=== PATIENT | female | born 1990 | race American Indian/Alaskan Native ===

== ENCOUNTER 2020-01-07 02:20 | Emergency (ER) | payer MEDICAID ==
[2020-01-07 02:27] VITALS: BP 111/59
[2020-01-07] MEDS ORDERED: FLUORESCEIN 1 MG STRIP OP ONE (04:25)
[2020-01-07] MEDS ORDERED: IBUPROFEN 800 MG TAB PO ONE (04:44)
--- NOTE | 2020-01-07 04:49 | Emergency Department Report ---
[facility] Chief Complaint: Eye Problems Stated Complaint: EYE PROBLEM Time Seen by Provider: 01/07/20 04:43 Side: Right Severity: moderate Symptoms: Yes Eye Itching, Yes Eye Redness, Yes Eye Pain, Yes Mucous Drainage, Yes Purulent Drainage, Yes H/O Allergic Rhinitis, Yes Contact Lens Use, No Blurred Vision, No Preceding URI, No Trauma, No Fever, No Headache Other History: pt is a 29 y/o aaf who presents for right eye pain and irritation x 1 days, states pain after removing contact lense, saw ophthalmology, awaiting new glasess, now with clear drainage from right eye, and redness, no visual c hanges , no fall , injury , or trauma, symptoms exacerbated by light, and movement, symptoms relieved by closing eye. ED Review of Systems ROS: Stated complaint: EYE PROBLEM Other details as noted in HPI Constitutional: denies: chills, fever Eyes: eye pain, eye discharge ENT: denies: ear pain, throat pain Respiratory: no symptoms reported Cardiovascular: denies: chest pain, palpitations Endocrine: no symptoms reported Gastrointestinal: denies: abdominal pain, nausea, diarrhea Genitourinary: denies: urgency, dysuria, discharge Musculoskeletal: denies: back pain, joint swelling, arthralgia Skin: denies: rash, lesions Neurological: denies: headache, weakness, paresthesias Psychiatric: denies: anxiety, depression Hematological/Lymphatic: denies: easy bleeding, easy bruising ED Past Medical Hx - Past Medical History Previous Medical History?: Yes Hx Seizures: Yes Hx Psychiatric Treatment: Yes (DEPRESSION) Additional medical history: Gonococcal vaginitis - Surgical History Past Surgical History?: Yes Additional Surgical History: 4X - Social History Smoking Status: Never Smoker Substance Use Type: Alcohol, Marijuana - Medications Home Medications: Home Medications Medication Instructions Recorded Confirmed Last Taken Type Acetaminophen/Codeine [Tylenol #3] 1 tab PO Q6H PRN #12 tab 02/26/15 Unknown Rx metroNIDAZOLE [Flagyl TAB] 500 mg PO Q12H #14 tablet 02/26/15 Unknown Rx Ibuprofen [Motrin 800 MG tab] 800 mg PO Q8HR PRN #30 tablet 01/07/20 Unknown Rx Ketotifen Fumarate [Zaditor] 1 drop OD BID #5 ml 01/07/20 Unknown Rx Polymyxin B Sulf/Trimethoprim 2 drop OD BID 7 Days #10 ml 01/07/20 Unknown Rx [Polytrim Eye Drops] [facility] Exam - Exam General: Vital signs noted. No distress. Alert and acting appropriately. Eye Exam: Right Injection, Right EOMI, Right Mucous Discharge, Right Purulent Discharge, Right Fluorescein Uptake, Right Photophobia, Neither Chemosis, Neither Abnormal Pupil, Neither Eye Foreign Body, Neither Lid Foreign Body, Neither Corneal Edema HEENT: No Nasal Congestion, No Pharyngeal Erythema Remainder of HEENT: Normal Lungs: Yes Clear Lung Sounds, Yes Good Air Exchange, No Wheezes, No Stridor, No Cough, No Nasal Flaring, No Retractions, No Use of Accessory Muscles Exam: Eye exam small corneal abrasion at 9:00, moderate conjunctival erythema, lid inverted and swept no foreign body noted, symptoms relieved with irrigation with sterile saline visual acuity is 20/30 bilateral ED Course Vital Signs 01/07/20 01/07/20 02:24 02:26 Temperature 98.2 F Pulse Rate 73 Respiratory 20 Rate Blood Pressure 111/59 [Right] O2 Sat by Pulse 98 Oximetry ED Medical Decision Making - Medical Decision Making This is a small corneal abrasion with conjunctivitis plan Polytrim eyedrops, Zaditor eyedrops, ibuprofen as needed pain. Patient will follow-up with ophthalmology today or tomorrow as scheduled. Patient will return to ED should symptoms worsen patient verbalized agreement and understanding with discharge plan will be DC'd home in stable condition at this time. Critical care attestation.: If time is entered above; I have spent that time in minutes in the direct care of this critically ill patient, excluding procedure time. ED Disposition Clinical Impression: Conjunctivitis Qualifiers: Conjunctivitis type: acute Acute conjunctivitis type: bacterial Laterality: right Qualified Code(s): H10.31 - Unspecified acute conjunctivitis, right eye Corneal abrasion, right Qualifiers: Encounter type: initial encounter Qualified Code(s): S05.01XA - Injury of conjunctiva and corneal abrasion without foreign body, right eye, initial encounter Disposition: DC-01 TO HOME OR SELFCARE Is pt being admited?: No Does the pt Need Aspirin: No Condition: Stable Instructions: Conjunctivitis (ED), Corneal Abrasion (ED) Prescriptions: Ibuprofen [Motrin 800 MG tab] 800 mg PO Q8HR PRN #30 tablet PRN Reason: pain Polymyxin B Sulf/Trimethoprim [Polytrim Eye Drops] 2 drop OD BID 7 Days #10 ml Ketotifen Fumarate [Zaditor] 1 drop OD BID #5 ml Referrals: CORTEZ BERG MD [Staff Physician] - 3-5 Days Forms: Work/School Release Form(ED) Time of Disposition: 05:02
== END 2020-01-07 05:11 | disposition home or self-care (01) ==
LOC: ED 02:20
DX: S05.01XA Injury of conjunctiva and corneal abrasion without foreign body, right eye, initial encounter (principal); R56.9 Unspecified convulsions; F32.9 Major depressive disorder, single episode, unspecified; F12.10 Cannabis abuse, uncomplicated; Z98.890 Other specified postprocedural states; Z79.1 Long term (current) use of non-steroidal anti-inflammatories (NSAID); Z79.899 Other long term (current) drug therapy; H10.9 Unspecified conjunctivitis; X58.XXXA Exposure to other specified factors, initial encounter; Y93.89 Activity, other specified; Y92.89 Other specified places as the place of occurrence of the external cause; Y99.8 Other external cause status
CPT/HCPCS: 99282

== ENCOUNTER 2020-01-26 13:45 | Emergency (ER) | payer MEDICAID ==
--- NOTE | 2020-01-26 14:28 | Emergency Department Report ---
Blank Doc - Documentation Documentation: 29-year-old female that presents with left thigh laceration. This initial assessment/diagnostic orders/clinical plan/treatment(s) is/are subject to change based on patient's health status, clinical progression and re- assessment by fellow clinical providers in the ED. Further treatment and workup at subsequent clinical providers discretion. Patient/guardians urged not to elope from the ED as their condition may be serious if not clinically assessed and managed. Initial orders include: 1- Patient sent to [facility] for further evaluation and treatment 2- lac repair needs to be done
[2020-01-26 14:31] VITALS: BP 124/57
[2020-01-26] MEDS ORDERED: IBUPROFEN 600 MG TAB PO ONE (19:35)
[2020-01-26] MEDS ORDERED: LIDOCAINE (1%) 10 MG/1 ML VIAL 20 ML MDV INFILTRATI ONE (19:35)
[2020-01-26] MEDS ORDERED: DIPHtheria,PERTUSSIS(ACELL),TETANUS VACCINE/PF 0.5 ML VIAL IM ONE (20:47)
--- NOTE | 2020-01-26 20:52 | Emergency Department Report ---
- General Chief Complaint: Wound/Laceration Stated Complaint: LEFT LEG LAC Time Seen by Provider: 01/26/20 14:27 Source: patient Mode of arrival: Ambulatory Limitations: No Limitations - History of Present Illness Initial Comments: Patient is a 29-year-old female presents emergency room with complaints of a laceration to the left thigh that occurred just prior to arrival. She states that her son had set a plate on the stairs and she did not see it. She states she accidentally slipped and fell and landed on the plate and it cut her left thigh. She states that she also has some left elbow discomfort. She is ambulatory without difficulty. She denies any numbness or weakness. She is unsure of her last tetanus immunization. There is no bleeding currently. She denies any past medical history or allergies to medications. - Related Data Previous Rx's Medication Instructions Recorded Last Taken Type Acetaminophen/Codeine [Tylenol #3] 1 tab PO Q6H PRN #12 tab 02/26/15 Unknown Rx metroNIDAZOLE [Flagyl TAB] 500 mg PO Q12H #14 tablet 02/26/15 Unknown Rx Ibuprofen [Motrin 800 MG tab] 800 mg PO Q8HR PRN #30 tablet 01/07/20 Unknown Rx Ketotifen Fumarate [Zaditor] 1 drop OD BID #5 ml 01/07/20 Unknown Rx Polymyxin B Sulf/Trimethoprim 2 drop OD BID 7 Days #10 ml 01/07/20 Unknown Rx [Polytrim Eye Drops] Ibuprofen [Motrin 600 MG tab] 600 mg PO Q8H PRN #12 tablet 01/26/20 Unknown Rx cephALEXin [Keflex] 500 mg PO QID 7 Days #56 cap 01/26/20 Unknown Rx Allergies Allergy/AdvReac Type Severity Reaction Status Date / Time No Known Allergies Allergy Verified 02/25/15 22:23 ED Review of Systems ROS: Stated complaint: LEFT LEG LAC Other details as noted in HPI Comment: All other systems reviewed and negative ED Past Medical Hx - Past Medical History Previous Medical History?: Yes Hx Seizures: Yes Hx Psychiatric Treatment: Yes (DEPRESSION) Additional medical history: Gonococcal vaginitis - Surgical History Past Surgical History?: Yes Additional Surgical History: 4X. C section - Social History Smoking Status: Never Smoker Substance Use Type: None - Medications Home Medications: Home Medications Medication Instructions Recorded Confirmed Last Taken Type Acetaminophen/Codeine [Tylenol #3] 1 tab PO Q6H PRN #12 tab 02/26/15 Unknown Rx metroNIDAZOLE [Flagyl TAB] 500 mg PO Q12H #14 tablet 02/26/15 Unknown Rx Ibuprofen [Motrin 800 MG tab] 800 mg PO Q8HR PRN #30 tablet 01/07/20 Unknown Rx Ketotifen Fumarate [Zaditor] 1 drop OD BID #5 ml 01/07/20 Unknown Rx Polymyxin B Sulf/Trimethoprim 2 drop OD BID 7 Days #10 ml 01/07/20 Unknown Rx [Polytrim Eye Drops] Ibuprofen [Motrin 600 MG tab] 600 mg PO Q8H PRN #12 tablet 01/26/20 Unknown Rx cephALEXin [Keflex] 500 mg PO QID 7 Days #56 cap 01/26/20 Unknown Rx ED Physical Exam - General Limitations: No Limitations General appearance: alert, in no apparent distress - Head Head exam: Present: atraumatic, normocephalic - Eye Eye exam: Present: normal appearance - ENT ENT exam: Present: mucous membranes moist - Extremities Exam Extremities exam: Present: other (4 cm laceration to the left lateral thigh, superificial, no foreign body visualized, no muscle/tendon involvement, FROM of the LLE, no deformity, no bony ttp of the left elbow, no edema, no deformity, FROM of the left elbow without difficulty, neurovascularly intact throughout) - Neurological Exam Neurological exam: Present: alert, oriented X3 - Psychiatric Psychiatric exam: Present: normal affect, normal mood - Skin Skin exam: Present: warm, dry ED Course Vital Signs 01/26/20 14:28 Temperature 98.6 F Pulse Rate 83 Respiratory 16 Rate Blood Pressure 124/57 O2 Sat by Pulse 98 Oximetry - Laceration /Wound Repair Left Lateral Thigh Wound Location: lower extremity (left lateral thigh) Wound Length (cm): 4 Wound's Depth, Shape: superficial Wound Explored: clean Irrigated w/ Saline (ccs): 500 Betadine Prep?: Yes Anesthesia: 1% Lidocaine Volume Anesthetic (ccs): 7 Wound Debrided: moderate Wound Repaired With: sutures Suture Size/Type: 3:0 Number of Sutures: 7 Layer Closure?: No Sterile Dressing Applied?: Yes Progress: Wound irrigated with saline and thoroughly scrubbed with Betadine, no foreign bodies identified, no muscle or tendon involvement, 7 cc of 1% lidocaine without epinephrine used as anesthetic, 3-0 Prolene used for skin closure, 7 sutures placed, patient tolerated well, no complications, bleeding controlled, sterile dressing applied, patient remained neurovascularly intact ED Medical Decision Making - Medical Decision Making Patient is a 29-year-old female presents emergency room with complaints of a laceration to the left thigh that occurred just prior to arrival. She states that her son had set a plate on the stairs and she did not see it. She states she accidentally slipped and fell and landed on the plate and it cut her left thigh. She states that she also has some left elbow discomfort. She is ambulatory without difficulty. She denies any numbness or weakness. She is unsure of her last tetanus immunization. There is no bleeding currently. She denies any past medical history or allergies to medications. VSS. on exam: 4 cm laceration to the left lateral thigh, superficial, no foreign body visualized, no muscle/tendon involvement, FROM of the LLE, no deformity, no bony ttp of the left elbow, no edema, no deformity, FROM of the left elbow without difficulty, neurovascularly intact throughout. Laceration irrigated with saline and thoroughly scrubbed with Betadine and repaired per procedure note. Patient given ibuprofen and tetanus immunization. No clinical signs of acute fracture o r dislocation of the elbow. Patient given prescription for ibuprofen and Keflex. Advised patient Please take medication as prescribed. Please keep area clean, dry, covered. May wash with soap and water and immediately dry. No hot tub, no pool, no soaking in water. Sutures need to be removed in 10 to 14 days. May have this done at primary care, urgent care, or return to the emergency room. Follow-up with your primary care doctor. Return to the emergency room for any new or worsening symptoms or any signs of infection. Critical care attestation.: If time is entered above; I have spent that time in minutes in the direct care of this critically ill patient, excluding procedure time. ED Disposition Clinical Impression: Left elbow pain Laceration of left thigh Qualifiers: Encounter type: initial encounter Qualified Code(s): S71.112A - Laceration without foreign body, left thigh, initial encounter Disposition: TO HOME OR SELFCARE Is pt being admited?: No Does the pt Need Aspirin: No Condition: Stable Instructions: Suture Care (ED), Laceration (ED) Additional Instructions: Please take medication as prescribed. Please keep area clean, dry, covered. May wash with soap and water and immediately dry. No hot tub, no pool, no soaking in water. Sutures need to be removed in 10 to 14 days. May have this done at primary care, urgent care, or return to the emergency room. Follow-up with your primary care doctor. Return to the emergency room for any new or worsening symptoms or any signs of infection. [facility] Address: [address] [place] [id number] Prescriptions: cephALEXin [Keflex] 500 mg PO QID 7 Days #56 cap Ibuprofen [Motrin 600 MG tab] 600 mg PO Q8H PRN #12 tablet PRN Reason: Pain Referrals: MAN BLANC MD [Staff Physician] - 3-5 Days [facility] [Provider Group] - 3-5 Days [facility] [Outside] - 3-5 Days Time of Disposition: 20:52 Print Language: SYRIAC
== END 2020-01-26 21:15 | disposition home or self-care (01) ==
LOC: ED 13:45
DX: S71.112A Laceration without foreign body, left thigh, initial encounter (principal); M25.522 Pain in left elbow; Z86.69 Personal history of other diseases of the nervous system and sense organs; F32.9 Major depressive disorder, single episode, unspecified; Z98.890 Other specified postprocedural states; Z79.1 Long term (current) use of non-steroidal anti-inflammatories (NSAID); W26.8XXA Contact with other sharp object(s), not elsewhere classified, initial encounter; Y93.89 Activity, other specified; Y92.89 Other specified places as the place of occurrence of the external cause; Y99.8 Other external cause status
CPT/HCPCS: 90471; 90715; 99282